=== PATIENT | male | born 2005 | race Caucasian/White ===

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

== ENCOUNTER 2024-01-26 11:02 | Emergency (ER) | payer OTHER, SELFPAY ==
[2024-01-26 11:03] VITALS: PULSE 88; RESP 16; O2SAT 96
[2024-01-26 11:04] VITALS: BP 119/76; PULSE 85; RESP 20; TEMP 36.1; O2SAT 96
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
[2024-01-26] MEDS: 0.9% Normal Saline (1000mL) 1,000 ML 1000 ML IV (11:48)
[2024-01-26] MEDS: HYDROmorphone 1 MG/ML Syringe IV (11:48)
[2024-01-26] MEDS: Ondansetron 4 MG/2 ML Vial IV (11:48)
[2024-01-26 11:55] VITALS: BMI 25.9
[2024-01-26 12:00] LABS: Absolute Lymphocyte Count 0.83 X10^3/uL (0.83-4.51); Basophil# 0.04 X10^3/uL; Basophil% 0.7 % (0-1); Eosinophil# 0.03 X10^3/uL; Eosinophils% 0.5 % (0-5); Hematocrit 44.2 % (40-54); Hemoglobin 14.5 g/dL (13.0-16.5); Lymphocyte # 0.83 X10^3/ul (0.83-4.51); Lymphocyte % 15.1 % (19-41); Mean Corp Hgb Conc 32.8 g/dL (32-36); Mean Corpuscular Volume 88.4 fL (80-94); Mean Platelet Vol. 10.7 fl (6.2-12.0); Monocyte# 0.54 X10^3/uL; Monocyte% 9.9 % (0-10); NRBC Flagged by Analyzer 0 % (0-5); Neutrophil # 4.01 X10^3/uL (2.7-7.7); Neutrophil % 73.3 % (47-70); Platelet Count 133 K/mm3 (150-450); RBC Distribution Width CV 12.2 % (11.6-14.6); RBC Distribution Width SD 39.8 fl (35.1-43.9); White Blood Count 5.5 K/mm3 (4.4-11.0)
[2024-01-26 12:13] LABS: AST(SGOT) 42 U/L (15-37); Alanine Aminotransfer ALT/SGPT 112 U/L (16-61); Albumin, Serum 3.8 g/dL (3.2-5.0); Alkaline Phosphatase 81 U/L (45-117); Anion Gap 3 (5-15); BUN 12 mg/dL (7-18); Bilirubin, Direct 0.19 mg/dL (0.00-0.30); Calcium,Total 9.4 mg/dL (8.5-10.1); Chloride 103 mmol/L (98-107); Creatinine, Serum 0.92 mg/dL (0.70-1.30); EST Glomerular Filtration Rate 110 mL/min (>60); Est Glom Filt Rate - Afr Amer 133 mL/min (>60); Estimated Creatinine Clearance 139.41 ml/min; Globulin 3.9 g/dL (2.2-4.2); Glucose 94 mg/dL (74-106); Lipase 16 U/L (13-75); Potassium 3.8 mmol/L (3.5-5.1); Protein, Total 7.7 g/dL (6.4-8.2); Sodium Level 134 mmol/L (136-145)
[2024-01-26 13:01] LABS: Bacteria 0 SEEN /hpf (None Seen); Mucous, Urine 0 SEEN /hpf (<or=2+); Red Blood Cells-Urine 0 SEEN /hpf (0-5); Squamous Epithelial Cells - UA 0 SEEN /hpf (0-5); White Blood Cells 0 SEEN /hpf (0-5)
[2024-01-26 13:03] VITALS: BP 116/71; PULSE 83; RESP 20; O2SAT 99
[2024-01-26 13:05] LABS: Color, Urine Yellow (Yellow); Glucose, Dipstick Normal (Normal); Ketone-Dipstick 50 mg/dl (Negative); Leukocyte Esterase-Dipstick Negative /ul (Negative); Nitrite-Dipstick Negative (Negative); Occult Blood-Urine Negative /ul (Negative); Protein-Dipstick 15 mg/dl (Negative); Specific Gravity, Urine 1.025 (1.002-1.030); Urine Bilirubin Dipstick Negative (Negative); Urine Clarity Clear (Clear); Urine Urobilinogen 1 mg/dl (Normal)
--- NOTE | 2024-01-26 13:32 | ED.RN ---
This is work related incident, patient given FROI to complete. States employer is [employer] and employer [employer] denies requiring alcohol/drug testing.
[2024-01-26 14:04] VITALS: BP 126/75; PULSE 68; RESP 20; TEMP 36.4; O2SAT 99
== END 2024-01-26 14:09 | disposition home or self-care (01) ==
PROVIDERS: Emergency Provider Emergency Medicine; Visit Provider Emergency Medicine
DX: S22.41XA Multiple fractures of ribs, right side, initial encounter for closed fracture (principal); S27.321A Contusion of lung, unilateral, initial encounter; S30.1XXA Contusion of abdominal wall, initial encounter; R74.01 Elevation of levels of liver transaminase levels; V86.55XA Driver of 3- or 4- wheeled all-terrain vehicle (ATV) injured in nontraffic accident, initial encounter; K59.00 Constipation, unspecified; M54.2 Cervicalgia
CPT/HCPCS: 71260; 72125; 74177; 80048; 80076; 81001; 83690; 85025; 96361; 96374; 96375; 99284; J7030; Q9967; A4216; J2405